=== PATIENT | male | born 1955 | race African-American/Black ===

== ENCOUNTER 2020-12-30 09:03 | Emergency (ER) | payer OTHER ==
[2020-12-30 09:39] VITALS: BP 99/76; PULSE 86; TEMP 97.8; BMI 29.7
== END 2020-12-30 13:13 | disposition home or self-care (01) ==
LOC: JER 09:03
DX: K94.23 Gastrostomy malfunction (principal)
CPT/HCPCS: 74018-TC-FY; 99283-25

== ENCOUNTER 2020-12-31 15:36 | Emergency (ER) | payer OTHER ==
[2020-12-31 20:21] VITALS: BMI 29.7
[2020-12-31 21:13] VITALS: BP 126/89; PULSE 86; TEMP 98.9
== END 2020-12-31 21:13 | disposition home or self-care (01) ==
LOC: JER 15:36
DX: T85.528A Displacement of other gastrointestinal prosthetic devices, implants and grafts, initial encounter (principal)
CPT/HCPCS: 74018-TC-FY; 99283-25

== ENCOUNTER 2021-01-05 04:15 | Inpatient (IN) | payer OTHER ==
[2021-01-05 06:09] LABS: BASO % 0.6 % (0-2.0); EOS % 3.3 % (0-4.5); HEMATOCRIT 29.9 % (35.4-49); HEMOGLOBIN 9.8 GM/dL (11.7-16.9); LYMPH % 19.9 % (8-40); MCH 27.5 pg (25.7-33.7); MEAN CELL VOLUME 83.5 fl (80-96); MEAN PLT VOLUME 8.3 fl (7.5-11.1); MONO % 5.4 % (3.8-10.2); NEUT % 70.8 % (42.8-82.8); PLATELET COUNT 390 K/MM3 (134-434); RBC 3.58 M/mm3 (4.00-5.60); RDW 18.2 % (11.9-15.9); WHITE BLOOD COUNT 8.4 K/mm3 (4.0-10.0)
[2021-01-05 06:24] LABS: INR 1.53 (0.83-1.09); PROTHROMBIN TIME (PATIENT) 18.3 SEC (9.7-13.0)
[2021-01-05 06:27] LABS: ACTIVATED PTT 36.8 SECONDS (25.2-36.5)
[2021-01-05 06:40] LABS: CALCIUM 9.4 mg/dL (8.5-10.1)
[2021-01-05 06:41] LABS: BLOOD UREA NITROGEN 95.8 mg/dL (7-18)
[2021-01-05 06:44] LABS: CREATININE 2.1 mg/dL (0.55-1.3)
[2021-01-05] MEDS ORDERED: SODIUM CHLORIDE 1,000 ML IV SCH ×2 (07:45→08:30)
[2021-01-05 09:55] LABS: CALCIUM 9.1 mg/dL (8.5-10.1)
[2021-01-05 09:56] LABS: ALBUMIN 2.5 g/dl (3.4-5.0); BLOOD UREA NITROGEN 101.9 mg/dL (7-18)
[2021-01-05 09:59] LABS: CREATININE 2.1 mg/dL (0.55-1.3)
[2021-01-05 10:00] LABS: TOT PROT 8.3 g/dl (6.4-8.2)
[2021-01-05] MEDS ORDERED: ACETAMINOPHEN 1000 MG/100 ML VIAL (NON FORMULARY) IVPB PRN (10:01)
[2021-01-05] MEDS ORDERED: METOPROLOL TARTRATE 5 MG/5 ML VIAL IVPUSH PRN (10:01)
[2021-01-05 10:02] LABS: BILIRUBIN,TOTAL 0.4 mg/dL (0.2-1)
[2021-01-05] MEDS ORDERED: DEXTROSE 5%-NORMAL SALINE 1,000 ML IV SCH (10:15)
[2021-01-05] MEDS: INSULIN SLIDING SCALE (NOVOLOG) 1 VIAL SQ SCH ×3 (12:35→21:54)
[2021-01-05] MEDS ORDERED: SODIUM ZIRCONIUM CYCLOSILICATE (LOKELMA) 5 GM PACKET PO SCH (13:30)
[2021-01-05] MEDS ORDERED: SODIUM ZIRCONIUM CYCLOSILICATE (LOKELMA) 10 GM PACKET PO SCH (13:45)
[2021-01-05] MEDS ORDERED: METOPROLOL TARTRATE 5 MG/5 ML VIAL IVPB PRN (15:14)
[2021-01-05 15:52] VITALS: BMI 28.3
[2021-01-05] MEDS ORDERED: ENOXAPARIN NA (PORCINE) 80 MG/0.8 ML DISP.SYRIN SQ ONE (17:45)
[2021-01-05 18:03] LABS: CALCIUM 9.3 mg/dL (8.5-10.1)
[2021-01-05 18:04] LABS: BLOOD UREA NITROGEN 92.3 mg/dL (7-18)
[2021-01-05] MEDS: BACITRACIN 15 GM TUBE TOPICAL OINTMENT TP SCH (19:02)
[2021-01-05] MEDS: MINERAL OIL/PET HY-PHL TOPICAL OINTMENT 454 GM JAR TP SCH ×2 (19:06→21:52)
[2021-01-05 20:34] LABS: EPI CELLS 2 /uL (0-25.1); HYALINE CASTS 1 /uL (0-3.1); URINE APPEARANCE CLOUDY; URINE BACTERIA 46 /uL (0-1359); URINE BILIRUBIN NEGATIVE (NEGATIVE); URINE COLOR YELLOW; URINE GLUCOSE (UA) NEGATIVE (NEGATIVE); URINE KETONE NEGATIVE (NEGATIVE); URINE LEUK ESTERASE 3+ (NEGATIVE); URINE NITRITE NEGATIVE (NEGATIVE); URINE PROTEIN 1+ (NEGATIVE); URINE RBC 27 /uL (0-23.9); URINE UROBILINOGEN 0.2 mg/dL (0.2-1.0); URINE WBC 2185 /uL (0-25.8)
[2021-01-06] MEDS: INSULIN SLIDING SCALE (NOVOLOG) 1 VIAL SQ SCH ×2 (07:21→15:16)
[2021-01-06 08:34] LABS: HEMOGLOBIN 9.5 GM/dL (11.7-16.9); MCH 27.7 pg (25.7-33.7); MCHC 32.9 g/dl (32.0-35.9); MEAN CELL VOLUME 84.2 fl (80-96); MEAN PLT VOLUME 8.9 fl (7.5-11.1); PLATELET COUNT 361 K/MM3 (134-434); RBC 3.45 M/mm3 (4.00-5.60); RDW 18.7 % (11.9-15.9); WHITE BLOOD COUNT 6.6 K/mm3 (4.0-10.0)
[2021-01-06 09:02] LABS: BLOOD UREA NITROGEN 84.4 mg/dL (7-18); CALCIUM 9.2 mg/dL (8.5-10.1)
[2021-01-06 09:06] LABS: CREATININE 1.7 mg/dL (0.55-1.3)
[2021-01-06] MEDS: BACITRACIN 15 GM TUBE TOPICAL OINTMENT TP SCH (11:06)
[2021-01-06] MEDS: MINERAL OIL/PET HY-PHL TOPICAL OINTMENT 454 GM JAR TP SCH (11:06)
[2021-01-06 16:09] VITALS: BP 130/72; PULSE 90; TEMP 97.4
== END 2021-01-06 17:29 | DRG 394 ==
LOC: JER 04:15 → JERBED 06:53 → J8W 11:07
PROVIDERS: ADMIT Family Medicine; ATTEND Family Medicine
PROC: 0DH64UZ Insertion of Feeding Device into Stomach, Percutaneous Endoscopic Approach (ICD-10-PCS; principal; 2021-01-06)
DX: Z43.1 Encounter for attention to gastrostomy (principal); J96.10 Chronic respiratory failure, unspecified whether with hypoxia or hypercapnia; N17.9 Acute kidney failure, unspecified; I10 Essential (primary) hypertension; E11.9 Type 2 diabetes mellitus without complications; G80.9 Cerebral palsy, unspecified; I73.9 Peripheral vascular disease, unspecified; N18.9 Chronic kidney disease, unspecified; E03.9 Hypothyroidism, unspecified; E87.5 Hyperkalemia
CPT/HCPCS: 36415; 49440; 49450; 71045-TC-FY; 80048; 80053; 81003; 82570; 82962; 84156; 84300; 85025; 85027; 85610; 85730; 93005; 93010; 99285-25; C9803; U0003; U0005

== ENCOUNTER 2022-09-16 14:33 | Inpatient (IN) | payer OTHER ==
[2022-09-16 14:59] VITALS: BMI 39.4
[2022-09-16] MEDS ORDERED: VANCOMYCIN 1 GM in D5W (PRE-DOCKED) 1,000 MG/250 ML IVPB ONE ×2 (17:07→17:55)
[2022-09-16] MEDS ORDERED: PIPERACILLIN/TAZOB 4.5 GM 4.5 GM in DEXTROSE 5%-WATER 100 ML IVPB ONE (17:07)
[2022-09-16] MEDS ORDERED: PIPERACILLIN/TAZOB 3.375 GM 3.375 GM/50 ML BAG IVPB ONE ×2 (18:03→23:40)
[2022-09-16] MEDS ORDERED: VANCOMYCIN/WATER FOR INJ (PEG) 1,000 MG/200 ML BAG IVPB ONE (18:03)
[2022-09-16 18:24] LABS: BASO % 0.8 % (0-2.0); EOS % 4.3 % (0-4.5); HEMATOCRIT 35.3 % (35.4-49); HEMOGLOBIN 10.9 GM/dL (11.7-16.9); LYMPH % 11.5 % (8-40); MCH 24.3 pg (25.7-33.7); MCHC 30.9 g/dl (32.0-35.9); MEAN CELL VOLUME 78.6 fl (80-96); MEAN PLT VOLUME 7.6 fl (7.5-11.1); MONO % 4.4 % (3.8-10.2); PLATELET COUNT 492 10^3/uL (134-434); RBC 4.49 M/mm3 (4.00-5.60); RDW 17.4 % (11.9-15.9); WHITE BLOOD COUNT 11.4 K/mm3 (4.0-10.0)
[2022-09-16 18:43] LABS: CALCIUM 8.7 mg/dL (8.5-10.1)
[2022-09-16 18:44] LABS: ALBUMIN 2.8 g/dl (3.4-5.0); BLOOD UREA NITROGEN 41.8 mg/dL (7-18)
[2022-09-16 18:48] LABS: CREATININE 1.4 mg/dL (0.55-1.3)
[2022-09-16 18:49] LABS: BILIRUBIN,TOTAL 0.3 mg/dL (0.2-1); TOT PROT 8.2 g/dl (6.4-8.2)
[2022-09-16] MEDS: INSULIN SLIDING SCALE (NOVOLOG) 1 VIAL SQ SCH (23:39)
[2022-09-17] MEDS ORDERED: PIPERACILLIN/TAZOB 3.375 GM 3.375 GM in DEXTROSE 5%-WATER - 50 ML IVPB SCH
[2022-09-17] MEDS: PIPERACILLIN/TAZOB 3.375 GM 3.375 GM in DEXTROSE 5%-WATER - 50 ML IVPB SCH ×3 (01:50→11:18)
[2022-09-17] MEDS ORDERED: VANCOMYCIN/WATER FOR INJ (PEG) 1,000 MG/200 ML BAG IVPB ONE (05:10)
[2022-09-17] MEDS ORDERED: PIPERACILLIN/TAZOB 3.375 GM 3.375 GM/50 ML BAG IVPB ONE ×3 (05:11→17:43)
[2022-09-17] MEDS ORDERED: MAG HYDROX/AL HYDROX/SIMETH 30 ML UNIT-DOSE CUP PO PRN (05:38)
[2022-09-17] MEDS ORDERED: traMADol HCL 50 MG TABLET PO PRN ×2 (05:43→11:22)
[2022-09-17] MEDS ORDERED: VANCOMYCIN HCL 1,500 MG in DEXTROSE 5%-WATER - 250 ML IVPB SCH (06:00)
[2022-09-17] MEDS ORDERED: VANCOMYCIN PREMIX 1.5 GM 1,500 MG/300 ML BAG IVPB SCH (06:00)
[2022-09-17] MEDS: INSULIN SLIDING SCALE (NOVOLOG) 1 VIAL SQ SCH ×4 (07:22→22:05)
[2022-09-17 08:05] LABS: BASO % 0.4 % (0-2.0); EOS % 2.6 % (0-4.5); HEMATOCRIT 36.2 % (35.4-49); HEMOGLOBIN 11.2 GM/dL (11.7-16.9); LYMPH % 3.2 % (8-40); MCH 24.2 pg (25.7-33.7); MCHC 30.8 g/dl (32.0-35.9); MEAN CELL VOLUME 78.7 fl (80-96); MEAN PLT VOLUME 7.7 fl (7.5-11.1); MONO % 3.4 % (3.8-10.2); NEUT % 90.4 % (42.8-82.8); PLATELET COUNT 464 10^3/uL (134-434); RDW 17.3 % (11.9-15.9); WHITE BLOOD COUNT 13.4 K/mm3 (4.0-10.0)
[2022-09-17 08:33] LABS: BLOOD UREA NITROGEN 40.7 mg/dL (7-18); CALCIUM 8.9 mg/dL (8.5-10.1); MAGNESIUM 2.5 mg/dL (1.8-2.4)
[2022-09-17 08:36] LABS: CREATININE 1.5 mg/dL (0.55-1.3)
[2022-09-17 08:37] LABS: PHOSPHOROUS 3.1 mg/dL (2.5-4.9)
[2022-09-17] MEDS ORDERED: FUROSEMIDE 20 MG TABLET (FP) PO SCH ×2 (10:00→11:20)
[2022-09-17] MEDS ORDERED: GABAPENTIN 100 MG CAPSULE PO SCH ×2 (10:00→22:00)
[2022-09-17] MEDS ORDERED: APIXABAN 5 MG TABLET PO SCH (10:00)
[2022-09-17] MEDS ORDERED: amLODIPine BESYLATE 10 MG TABLET (FP) PO SCH ×2 (10:00→11:18)
[2022-09-17] MEDS ORDERED: METOPROLOL TARTRATE 50 MG TABLET (FP) PO SCH (10:00)
[2022-09-17] MEDS ORDERED: ZINC SULFATE 220 MG CAPSULE (FP) PO SCH ×2 (10:00→11:22)
[2022-09-17] MEDS ORDERED: LEVOTHYROXINE NA 25 MCG TABLET (FP) PO SCH ×2 (10:00→11:20)
[2022-09-17] MEDS ORDERED: APIXABAN 5 MG TABLET GT SCH (10:07)
[2022-09-17] MEDS ORDERED: LEVOTHYROXINE NA 25 MCG TABLET (FP) GT SCH (10:08)
[2022-09-17] MEDS ORDERED: amLODIPine BESYLATE 10 MG TABLET (FP) GT SCH (10:09)
[2022-09-17] MEDS ORDERED: METOPROLOL TARTRATE 50 MG TABLET (FP) GT SCH (10:09)
[2022-09-17] MEDS ORDERED: ZINC SULFATE 220 MG CAPSULE (FP) GT SCH (10:09)
[2022-09-17] MEDS ORDERED: traMADol HCL 50 MG TABLET NGT PRN (10:10)
[2022-09-17] MEDS ORDERED: FUROSEMIDE 40 MG/5 ML UNIT-DOSE CUP GT SCH (10:10)
[2022-09-17] MEDS ORDERED: ISOSORBIDE DINITRATE 20 MG TABLET GT SCH (10:15)
[2022-09-17] MEDS ORDERED: POLYETHYLENE GLYCOL (HEALTHYLAX) 3350 17 GM PACKET ONE (10:56)
[2022-09-17] MEDS: POLYETHYLENE GLYCOL (HEALTHYLAX) 3350 17 GM PACKET PO SCH (11:17)
[2022-09-17] MEDS ORDERED: ISOSORBIDE DINITRATE 20 MG TABLET PO SCH (11:20)
[2022-09-17] MEDS: TRIAMTERENE AND HCTZ - 37.5 MG/25 MG CAPSULE PO SCH (13:00)
[2022-09-17] MEDS: GABAPENTIN 100 MG CAPSULE PO SCH (15:16)
[2022-09-17] MEDS ORDERED: GABAPENTIN 100 MG CAPSULE ONE ×2 (15:43→22:10)
[2022-09-17] MEDS: CEFAZOLIN SODIUM 2 GM in DEXTROSE 5%-WATER 100 ML IVPB SCH (17:43)
[2022-09-17] MEDS ORDERED: CEFAZOLIN SODIUM 2 GM VIAL ONE (17:44)
[2022-09-17] MEDS ORDERED: FAMOTIDINE 20 MG TABLET PO SCH (22:00)
[2022-09-17] MEDS ORDERED: APIXABAN 5 MG TABLET ONE (22:10)
[2022-09-17] MEDS ORDERED: FAMOTIDINE 20 MG TABLET ONE (22:10)
[2022-09-17] MEDS ORDERED: METOPROLOL TARTRATE 50 MG TABLET (FP) ONE (22:10)
[2022-09-17] MEDS: APIXABAN 5 MG TABLET PO SCH (22:23)
[2022-09-17] MEDS: METOPROLOL TARTRATE 50 MG TABLET (FP) PO SCH (22:23)
[2022-09-17 22:24] VITALS: TEMP 98
[2022-09-18] MEDS ORDERED: CEFAZOLIN SODIUM 2 GM VIAL ONE ×3 (03:12→16:56)
[2022-09-18] MEDS: CEFAZOLIN SODIUM 2 GM in DEXTROSE 5%-WATER 100 ML IVPB SCH ×3 (03:18→17:21)
[2022-09-18] MEDS ORDERED: LEVOTHYROXINE NA 25 MCG TABLET (FP) ONE (06:00)
[2022-09-18] MEDS ORDERED: POLYETHYLENE GLYCOL (HEALTHYLAX) 3350 17 GM PACKET ONE (09:23)
[2022-09-18] MEDS ORDERED: FUROSEMIDE 20 MG TABLET (FP) ONE (09:24)
[2022-09-18] MEDS ORDERED: GABAPENTIN 100 MG CAPSULE ONE ×2 (09:24→14:28)
[2022-09-18] MEDS ORDERED: APIXABAN 5 MG TABLET ONE (09:24)
[2022-09-18] MEDS ORDERED: ZINC SULFATE 220 MG CAPSULE (FP) ONE (09:31)
[2022-09-18] MEDS: INSULIN SLIDING SCALE (NOVOLOG) 1 VIAL SQ SCH ×2 (09:37→11:23)
[2022-09-18] MEDS: TRIAMTERENE AND HCTZ - 37.5 MG/25 MG CAPSULE PO SCH (09:37)
[2022-09-18] MEDS: POLYETHYLENE GLYCOL (HEALTHYLAX) 3350 17 GM PACKET PO SCH (09:37)
[2022-09-18] MEDS: GABAPENTIN 100 MG CAPSULE PO SCH ×2 (09:37→14:28)
[2022-09-18] MEDS: METOPROLOL TARTRATE 50 MG TABLET (FP) PO SCH (09:38)
[2022-09-18] MEDS: APIXABAN 5 MG TABLET PO SCH (09:38)
[2022-09-18] MEDS: ISOSORBIDE DINITRATE PO SCH ×2 (09:39→17:21)
[2022-09-18 09:40] VITALS: RESP 18
[2022-09-18 11:20] LABS: BASO % 0.3 % (0-2.0); EOS % 5.5 % (0-4.5); HEMATOCRIT 33.9 % (35.4-49); HEMOGLOBIN 10.6 GM/dL (11.7-16.9); LYMPH % 9.6 % (8-40); MCH 24.4 pg (25.7-33.7); MCHC 31.4 g/dl (32.0-35.9); MEAN CELL VOLUME 77.6 fl (80-96); MEAN PLT VOLUME 7.4 fl (7.5-11.1); MONO % 4.4 % (3.8-10.2); NEUT % 80.2 % (42.8-82.8); PLATELET COUNT 473 10^3/uL (134-434); RBC 4.37 M/mm3 (4.00-5.60); RDW 17.5 % (11.9-15.9); WHITE BLOOD COUNT 11.1 K/mm3 (4.0-10.0)
[2022-09-18 11:44] LABS: CALCIUM 8.7 mg/dL (8.5-10.1)
[2022-09-18 11:45] LABS: ALBUMIN 2.6 g/dl (3.4-5.0)
[2022-09-18 11:47] LABS: CREATININE 1.3 mg/dL (0.55-1.3)
[2022-09-18 11:48] LABS: TOT PROT 7.6 g/dl (6.4-8.2)
[2022-09-18 11:49] LABS: BILIRUBIN,TOTAL 0.3 mg/dL (0.2-1)
[2022-09-18] MEDS ORDERED: POTASSIUM CHLORIDE TABS 20 MEQ TABLET.ER (FP) PO ONE ×2 (14:24→17:24)
[2022-09-18 17:21] VITALS: BP 112/61; PULSE 92
[2022-09-18] MEDS ORDERED: POTASSIUM CHLORIDE ORAL LIQUID 20 MEQ/15 ML ONE (17:26)
== END 2022-09-18 20:38 | DRG 603 ==
LOC: JER 14:33 → JERBED 21:05 → OBSVTOIN 21:26
PROVIDERS: ADMIT Family Medicine; ATTEND Family Medicine
DX: L03.116 Cellulitis of left lower limb (principal); G81.94 Hemiplegia, unspecified affecting left nondominant side; E03.9 Hypothyroidism, unspecified; E11.22 Type 2 diabetes mellitus with diabetic chronic kidney disease; I12.9 Hypertensive chronic kidney disease with stage 1 through stage 4 chronic kidney disease, or unspecified chronic kidney disease; N18.9 Chronic kidney disease, unspecified; I48.91 Unspecified atrial fibrillation; E11.51 Type 2 diabetes mellitus with diabetic peripheral angiopathy without gangrene
CPT/HCPCS: 36415; 80048; 80053; 82962; 83735; 84100; 84443; 85025; 87040; 87086; 93005; 93010; 93970-TC; 99285-25; C9803-CS; G0378; U0003; U0005